=== PATIENT | male | born 1960 | race Caucasian/White ===

== ENCOUNTER 2020-04-19 09:24 | Emergency (ER) | payer OTHER ==
[~2020-04-19] VITALS: Ht 167.6 cm; Wt 89.0 kg
[2020-04-19 09:38] VITALS: BP 153/90
--- NOTE | 2020-04-19 09:38 | PHYS DOC ---
Past History Past Medical History: No Pertinent History Past Surgical History: Tonsillectomy, Other Additional Past Surgical Histo: Left shoulder Smoking: Non-smoker Alcohol Use: Occasionally Drug Use: Marijuana General Adult EDM: Chief Complaint: SHOULDER INJURY HPI: HPI: 59-year-old male presents with report of left shoulder pain after trying to lift a box approximately 30 minutes prior to arrival. Reports box was not "very heavy" but he was trying to fling box onto a stack of boxes when patient reports sensation of hearing and feeling a "pop "in his shoulder. Patient does report history of prior surgery to this area in his 20s. Also reports history of neck problems with nerve pain in arms. Reports today's pain is different than prior. Denies chest pain. Denies numbness or tingling. Denies other injury. Review of Systems: Review of Systems: Constitutional: Denies fever or chills Eyes: Denies redness or eye pain HENT: Denies nasal congestion or sore throat Respiratory: Denies cough or shortness of breath Cardiovascular: Denies chest pain or palpitations GI: Denies abdominal pain, nausea, or vomiting : Denies dysuria or hematuria Musculoskeletal: Denies back pain; reports left shoulder pain Integument: Denies rash or skin lesions Neurologic: Denies headache, focal weakness or sensory changes Complete systems were reviewed and found to be within normal limits, except as documented in this note. Allergies: Allergies: Allergies Coded Allergies Type Severity Reaction Last Updated Verified No Known Drug Allergies 08/16/15 No Physical Exam: PE: Constitutional: Well developed, well nourished, uncomfortable, non-toxic appearance HENT: Normocephalic, atraumatic Eyes: Conjunctiva normal, no discharge Neck: Normal range of motion, no tenderness, supple Cardiovascular: Left radial pulse +2, CR < 2 sec Lungs & Thorax: No respiratory distress, equal chest rise and fall Skin: Warm, dry, no erythema, no rash Extremities: Left glenohumeral tenderness, ROM diminished to left shoulder due to pain, no edema, left elbow/wrist/hand without pain and full ROM noted Neurologic: Alert and oriented X 3, no focal deficits noted Psychologic: Affect normal, judgment normal EKG: EKG: [] Radiology/Procedures: Radiology/Procedures: PROCEDURE: SHOULDER 2+V LEFT 3 views left shoulder 04/19/2020 9:38 AM Indication: Reason: pain- after lifting / Spl. Instructions: / History: Comparison: None Findings: No fracture or dislocation is identified. Postsurgical anchor device noted in the lateral aspect of the proximal humerus. Bulky calcifications are noted in the subacromial space could reflect calcific tendinitis. Chronic rotator cuff pathology is suspected. There is an inferiorly projecting osteophyte arising just medial to the glenoid. Medial to this there is a small rounded calcification. Small loose body is possible. Hypertrophic changes of the acromioclavicular joint are noted. IMPRESSION: No radiographic evidence of acute osseous abnormality. Degenerative and postoperative changes of the left shoulder as described. Rotator cuff pathology is suspected. Electronically signed by: James Watts MD (04/19/2020 10:01 AM) [id number] Course & Med Decision Making: Course & Med Decision Making Pertinent Imaging studies reviewed. (See chart for details) Patient presents with left shoulder pain after pulling a box onto a stack just prior to arrival. Patient with history of prior shoulder injury requiring surgical repair. Limb neurovascularly intact. Patient denies any need for pain medication at this time. Ice applied. X-ray without acute fracture or dislocation. Chronic and postsurgical changes noted. Shoulder immobilizer placed. Shoulder [place] education provided to prevent frozen shoulder. Patient stable for discharge with outpatient follow-up with PCP/orthopedics. Orthopedic referral provided. Discussed findings and plan with patient, who acknowledges understanding and agreement. Good Disclaimer: Good Disclaimer: This electronic medical record was generated, in whole or in part, using a voice recognition dictation system. Splinting Splinting : Location: Left shoulder Pre-Made Type: Shoulder immobilizer Pre-Proc Neuro Vasc Exam: normal Post-Proc Neuro Vasc Exam: normal, unchanged from pre-exam Departure Departure: Impression: Primary Impression: Left shoulder pain Qualified Codes: M25.512 - Pain in left shoulder Disposition: HOME/RESIDENCE PRIOR TO ADM Condition: STABLE Referrals: ASHER ANAND MD (PCP) NIMA NOVAK MD Patient Instructions: Shoulder Pain, [id number] Additional Instructions: ICE area of discomfort 20 min on then leave off next 20 min. Repeat several times daily as needed for next few days. Use over the counter Ibuprofen and Tylenol for pain in addition to prescribed muscle relaxers. Scripts Orphenadrine Citrate (ORPHENADRINE CITRATE) 100 Mg Tablet.er 1 TAB PO BID PRN for MUSCLE PAIN, #14 TAB 0 Refills Prov: LEX GAO DO 04/19/20 Justification of Admission: Justification of Admission: Justification of Admission Dx: N/A LEX GAO DO Apr 19, 2020 09:38
[2020-04-19] MEDS ORDERED: ORPH-16 PO (10:00)
--- NOTE | 2020-04-19 10:04 | RAD ---
3 views left shoulder 04/19/2020 9:38 AM Indication: Reason: pain- after lifting / Spl. Instructions: / History: Comparison: None Findings: No fracture or dislocation is identified. Postsurgical anchor device noted in the lateral aspect of the proximal humerus. Bulky calcifications are noted in the subacromial space could reflect calcific tendinitis. Chronic rotator cuff pathology is suspected. There is an inferiorly projecting osteophyte arising just medial to the glenoid. Medial to this there is a small rounded calcification. Small loose body is possible. Hypertrophic changes of the acromioclavicular joint are noted. IMPRESSION: No radiographic evidence of acute osseous abnormality. Degenerative and postoperative changes of the left shoulder as described. Rotator cuff pathology is suspected. Electronically signed by: James Watts MD (04/19/2020 10:01 AM) [id number]
== END 2020-04-19 10:07 | disposition home or self-care (01) ==
LOC: ER 09:24
DX: M25.512 Pain in left shoulder (principal); M75.32 Calcific tendinitis of left shoulder; X50.9XXA Other and unspecified overexertion or strenuous movements or postures, initial encounter; Y93.89 Activity, other specified; Y92.89 Other specified places as the place of occurrence of the external cause; Y99.8 Other external cause status
CPT/HCPCS: 29105; 73030; 99283